=== PATIENT | male | born 1965 | race Caucasian/White ===

== ENCOUNTER 2022-02-11 23:16 | Observation (INO) ==
[2022-02-12 02:01] LABS: Hematocrit 44 % (42-52); Hemoglobin 15.5 g/dL (14.0-18.0); Mean Corpuscular HGB Conc 35 g/dL (31-36); Mean Corpuscular Hemoglobin 34 pg (27-31); Mean Corpuscular Volume 98 fL (80-94); Red Blood Count 4.51 10^6 /uL (4.18-5.48); Red Cell Distribution Width 15 % (10-15); White Blood Count 11.5 10^3/uL (3.5-10.8)
[2022-02-12 02:02] LABS: Mean Platelet Volume 8.4 fL (7.4-10.4)
[2022-02-12 02:04] LABS: INR 1.38 (0.89-1.11)
[2022-02-12] MEDS ORDERED: Morphine 10 MG/ML VIAL (1 ml) IV ONE (02:16)
[2022-02-12] MEDS ORDERED: NS 0.9% 1000 ml BAG 2,000 ML IV ONE (02:16)
[2022-02-12] MEDS ORDERED: Heparin 5000 UNITS/ML 1 mL VIAL IV SCH (02:28)
[2022-02-12 02:30] LABS: Albumin 3.6 g/dL (3.2-5.2); Albumin/Globulin Ratio 0.8 (1-3); Calcium 8.6 mg/dL (8.6-10.3); Globulin 4.4 g/dL (2-4); Potassium 2.9 mmol/L (3.5-5.0); Total Bilirubin 2.9 mg/dL (0.2-1.0); eGFR CKD-EPI 92.2 (>60)
[2022-02-12] MEDS ORDERED: Heparin DRIP 25,000 UNITS BAG 25,000 UNITS/500 ML BAG IV SCH (02:30)
[2022-02-12 03:33] LABS: Activated Partial Thrombo Time 35.1 seconds (26.0-38.0)
[2022-02-12 03:43] LABS: Direct Bilirubin 1.1 mg/dL (0.03-0.18); Magnesium 1.8 mg/dL (1.9-2.7)
[2022-02-12] MEDS: KCL 20 MEQ/100 ML IVPREMIX 20 MEQ/100 ML BAG IV SCH ×4 (04:01→18:01)
[2022-02-12] MEDS ORDERED: Magnesium Sulfate 2 gm BAG 2 GM/50 ML BAG IVPB ONE (04:03)
[2022-02-12] MEDS ORDERED: Thiamine 100 MG/ML 2 ml VIAL 100 MG, Folic Acid IV 1 MG, Multiple Vitamin IV ADULT 10 M... IV ONE (04:04)
[2022-02-12 04:09] LABS: Folate 8.51 ng/mL (5.90-24.80)
[2022-02-12 05:14] LABS: Toxic Granulation 2+
[2022-02-12 05:15] LABS: ABS Lymphocytes 1.1 10^3/ul (1.0-4.8); ABS Monocytes 1.4 10^3/ul (0-0.8); Eosinophil % 0.1 %; Lymphocyte % 9.4 %; Platelet Count 68 10^3/uL (150-450)
[2022-02-12 05:31] LABS: RBC Morphology Normal (Normal)
[2022-02-12 06:01] LABS: ABS Lymphocytes 1.1 10^3/ul (1.0-4.8); ABS Monocytes 0.9 10^3/ul (0-0.8); ABS Neutrophils 7.6 10^3/ul (1.5-7.7); Eosinophil % 0.2 %; Hematocrit 41 % (42-52); Hemoglobin 14.4 g/dL (14.0-18.0); Lymphocyte % 11.8 %; Mean Corpuscular HGB Conc 35 g/dL (31-36); Mean Corpuscular Hemoglobin 34 pg (27-31); Mean Corpuscular Volume 98 fL (80-94); Mean Platelet Volume 8.3 fL (7.4-10.4); Platelet Count 61 10^3/uL (150-450); Red Blood Count 4.19 10^6 /uL (4.18-5.48); Red Cell Distribution Width 15 % (10-15); White Blood Count 9.7 10^3/uL (3.5-10.8)
[2022-02-12 07:00] LABS: eGFR CKD-EPI 106.6 (>60)
[2022-02-12 07:10] LABS: Hematocrit 44 % (42-52); Hemoglobin 15.4 g/dL (14.0-18.0); Mean Corpuscular HGB Conc 35 g/dL (31-36); Mean Corpuscular Hemoglobin 35 pg (27-31); Mean Corpuscular Volume 99 fL (80-94); Mean Platelet Volume 8.3 fL (7.4-10.4); Platelet Count 57 10^3/uL (150-450); Red Blood Count 4.39 10^6 /uL (4.18-5.48); Red Cell Distribution Width 15 % (10-15); White Blood Count 9.1 10^3/uL (3.5-10.8)
[2022-02-12 07:45] LABS: Blood Urea Nitrogen 21 mg/dL (6-24); CO2 Carbon Dioxide 24 mmol/L (22-32); Calcium 7.9 mg/dL (8.6-10.3); Chloride 98 mmol/L (101-111); Glucose 98 mg/dL (70-100); Magnesium 2.3 mg/dL (1.9-2.7); Sodium 132 mmol/L (135-145); eGFR CKD-EPI 109.3 (>60)
[2022-02-12 07:48] LABS: Anion Gap 10 mmol/L (2-11)
[2022-02-12 08:46] LABS: Eosinophil % 0.4 %; Lymphocyte % 11.1 %; RBC Morphology Normal (Normal)
[2022-02-12 09:09] LABS: Urine Appearance Clear; Urine Bilirubin 1+ (Small) (Negative); Urine Blood Negative (Negative); Urine Color Amber; Urine Glucose Negative (Negative); Urine Ketones Trace (Negative); Urine Nitrite Positive (Negative); Urine Protein Negative (Negative)
[2022-02-12] MEDS ORDERED: ALTEPLASE SCH (09:15)
[2022-02-12] MEDS ORDERED: NS 0.9% SCH (09:15)
[2022-02-12 09:18] LABS: Urine Bacteria Absent (Absent); Urine Red Blood Cell Absent (Absent); Urine Squamous Epithelial Cell Present (Absent); Urine White Blood Cell Trace(0-5/hpf) (Absent)
[2022-02-12] MEDS ORDERED: Iohexol 350 (CONTRAST) 100 ML PAK IV ONE (09:56)
[2022-02-12] MEDS ORDERED: Lidocaine 1% VIAL 10 MG/ML VIAL ONE (09:56)
[2022-02-12] MEDS ORDERED: Heparin 2 UNITS/ML IVPREMIX 3,000 UNIT/1,500 ML BAG IV ONE (09:57)
[2022-02-12] MEDS ORDERED: Midazolam 5 mg/5 ml VIAL 1 mg/ml 5 ml VIAL (5 mg) ONE (10:11)
[2022-02-12] MEDS ORDERED: fentaNYL 100 mcg/2 ml 50 MCG/ML VIAL ONE (10:11)
[2022-02-12 14:10] LABS: C Reactive Protein 21.63 mg/L (<8.01)
[2022-02-12 15:06] LABS: ABS Lymphocytes 1.3 10^3/ul (1.0-4.8); ABS Monocytes 0.9 10^3/ul (0-0.8); ABS Neutrophils 6.7 10^3/ul (1.5-7.7); Eosinophil % 0.1 %; Hematocrit 45 % (42-52); Hemoglobin 15.4 g/dL (14.0-18.0); Lymphocyte % 14.2 %; Mean Corpuscular HGB Conc 34 g/dL (31-36); Mean Corpuscular Hemoglobin 34 pg (27-31); Mean Corpuscular Volume 100 fL (80-94); Mean Platelet Volume 8.5 fL (7.4-10.4); Platelet Count 62 10^3/uL (150-450); Red Blood Count 4.53 10^6 /uL (4.18-5.48); Red Cell Distribution Width 15 % (10-15); White Blood Count 8.9 10^3/uL (3.5-10.8)
[2022-02-12 19:03] LABS: Hematocrit 43 % (42-52); Hemoglobin 14.7 g/dL (14.0-18.0); Mean Corpuscular HGB Conc 34 g/dL (31-36); Mean Corpuscular Hemoglobin 34 pg (27-31); Mean Corpuscular Volume 100 fL (80-94); Mean Platelet Volume 8.4 fL (7.4-10.4); Platelet Count 60 10^3/uL (150-450); Red Blood Count 4.35 10^6 /uL (4.18-5.48); Red Cell Distribution Width 15 % (10-15); White Blood Count 8.1 10^3/uL (3.5-10.8)
[2022-02-12] MEDS ORDERED: Nicotine PATCH 21 MG/24 HR PATCH TRANSDERM SCH (19:30)
[2022-02-12 19:50] LABS: ABS Lymphocytes 1.1 10^3/ul (1.0-4.8); ABS Monocytes 0.9 10^3/ul (0-0.8); Eosinophil % 0.2 %; Lymphocyte % 13.8 %
[2022-02-12 19:52] LABS: RBC Morphology Normal (Normal)
[2022-02-13] MEDS: KCL 20 MEQ/100 ML IVPREMIX 20 MEQ/100 ML BAG IV SCH ×2 (01:22→04:25)
[2022-02-13] MEDS ORDERED: Polyethylene Glycol 3350 17 GM PACKET PO ONE (08:48)
[2022-02-13] MEDS ORDERED: Senna TAB 8.6 mg TAB PO ONE (08:48)
[2022-02-13 16:39] VITALS: BP 157/79
== END 2022-02-13 19:00 | disposition home or self-care (01) ==
LOC: ED 23:16 → EDHOLD 02-12 03:18 → SUATTDRO 02-12 03:18 → INTOOBSV 02-12 03:18 → MEDTELE 02-12 09:15
PROVIDERS: ADMIT Internal Medicine; ATTEND Student in an Organized Health Care Education/Training Program